=== PATIENT | male | born 1965 | race Caucasian/White ===

== ENCOUNTER 2018-10-02 11:22 | Inpatient (IN) | payer OTHER ==
[~2018-10-02] VITALS: Ht 188 cm; Wt 109.8 kg
[2018-10-02 11:35] VITALS: BP 150/115
--- NOTE | 2018-10-02 11:36 | NUR ---
PATIENT WHEELCHAIR ASSISTED TO BED 4.
--- NOTE | 2018-10-02 11:37 | NUR ---
WHEEL CHAIR ASSISTED TO BED 4
--- NOTE | 2018-10-02 11:40 | NUR ---
53M BIB DAUGHTER C/O 06/14 RT FOOT RADIATING TO HIS RT LEG/KNEE X 1 WK; PRESCRIBE WITH AMOXICILLIN BY PMD LAST SUNDAY WITH NO RELIEF FOR THE "ULCER ON BOTTOM OF FOOT" THAT HAS BEEN GOING ON SINCE "COUPLE OF MONTHS". ULCER APPROX 1CM IN DIAMETER. PT DENIES ANY RECENT FEVERS OR RECENT INJURY TO RIGHT FOOT OR RIGHT KNEE. SWELLING NOTED TO RIGHT KNEE AND RIGHT FOOT. PT IS AOX4 TO PERSON, PLACE, TIME, AND SITUATION. RR ARE EVEN AND UNLABORED. NAD. AWAITING ER MD GALEAS. WILL CONTINUE TO MONITOR.
[2018-10-02] MEDS ORDERED: CLINDAMYCIN 900 MG in DEXTROSE 5% 100 ML IV ONE (12:45)
[2018-10-02] MEDS ORDERED: fentaNYL 0.05 MG/ML VIAL IVP ONE (12:45)
[2018-10-02] MEDS ORDERED: NACL 0.9% 1,000 ML IV ONE (12:45)
[2018-10-02] MEDS ORDERED: methylPREDNISolone SS 125 MG/2 ML VIAL IVP ONE (12:45)
[2018-10-02] MEDS ORDERED: CLINDAMYCIN 900 MG/6 ML VIAL IV ONE (13:09)
[2018-10-02 13:22] LABS: BASOPHILS # (AUTO) 0.1 K/uL (0.00-0.22); BASOPHILS % (AUTO) 0.6 % (0.0-2.0); HEMATOCRIT 44.5 % (36-52); LYMPHOCYTES # (AUTO) 1.7 K/uL (2.0-11.5); LYMPHOCYTES % (AUTO) 13.1 % (20.5-51.1); MEAN CORPUSCULAR HEMOGLOBIN 30 pg (27-31); MEAN CORPUSCULAR HGB CONC 34 g/dL (33-37); MEAN CORPUSCULAR VOLUME 87.5 fL (80-94); MONOCYTES # (AUTO) 1.2 K/uL (0.8-1.0); MONOCYTES % (AUTO) 9.3 % (1.7-9.3); NEUTROPHILS # (AUTO) 9.8 K/uL (1.8-7.7); PLATELET COUNT (AUTO) 316 K/uL (140-450); RED BLOOD CELL COUNT(AUTO) 5.08 MIL/uL (4.20-6.10); RED CELL DISTRIBUTION WIDTH 13.1 % (11.6-13.7); WHITE BLOOD COUNT (AUTO) 12.7 K/uL (4.8-10.8)
[2018-10-02 14:02] LABS: ANION GAP 13.9 (8-16); CARBON DIOXIDE 32.4 mmol/L (21-32); POTASSIUM 3.3 mmol/L (3.5-5.1)
[2018-10-02 14:03] LABS: ALBUMIN 4.1 g/dL (3.4-5.0); CREATININE 1.2 mg/dL (0.7-1.3); TOTAL BILIRUBIN 0.6 mg/dL (0.0-1.0)
[2018-10-02 14:17] LABS: URIC ACID 6.9 mg/dL (2.6-7.2)
--- NOTE | 2018-10-02 14:42 | NUR ---
PATIENT STATES TO FEELING BETTER. WAITING FOR BLOOD RESULTS TO COME BACK. PATIENTS DAUGHTER IS BACK AT BESIDE. PATIENT BED IS IN THE LOWERED LOCK POSITION.
[2018-10-02] MEDS ORDERED: NACL 0.9% 3,000 ML IV ONE (14:55)
[2018-10-02] MEDS ORDERED: ATOR10TA51 PO (15:29)
[2018-10-02] MEDS ORDERED: QUET400T PO (15:29)
[2018-10-02] MEDS ORDERED: METO25TE2 PO (15:29)
[2018-10-02] MEDS ORDERED: HYDR-5092 PO (15:29)
[2018-10-02] MEDS ORDERED: ALPR2TAB1 PO (15:29)
--- NOTE | 2018-10-02 15:39 | NUR ---
PATIENT UNSURE OF 6TH MEDICATION DOSE AND FREQUENCY; ASKED TO FOLLOW UP WITH CORRECT INFORMATION; WILL FOLLOW UP
[2018-10-02] MEDS ORDERED: ACETAMINOPHEN 325 MG TAB PO PRN (16:15)
[2018-10-02] MEDS ORDERED: ONDANSETRON 4 MG/2 ML VIAL IVP PRN (16:15)
[2018-10-02] MEDS ORDERED: VANCOMYCIN PER PHARMACY MC PRN ×2 (16:20)
[2018-10-02] MEDS ORDERED: CHLO25TA33 PO (16:43)
--- NOTE | 2018-10-02 17:20 | NUR ---
Patient will be admitted to [facility]. Admited to Med Surg. Will go to room 112B. Belongings list completed. Bedside report to Gabrielle MARCOS.
--- NOTE | 2018-10-02 17:30 | NUR ---
RECEIVED REPORT FROM ER NURSE. PT IN STABLE CONDITION. IV INTACT AND PATENT. RESPIRATIONS EVEN AND UNLABORED. SAFETY MEASURE IN PLACE. WILL CONTINUE TO MONITOR.
[2018-10-02] MEDS: NACL 0.9% 1,000 ML IV SCH (17:59)
--- NOTE | 2018-10-02 18:00 | NUR ---
GAVE DUE MEDICATIONS, PT TOLERATED WELL. WILL CONTINUE TO MONITOR.
--- NOTE | 2018-10-02 19:15 | NUR ---
RECEIVED BEDSIDE REPORT FROM PRITI CLEMENT, PATIENT IN BED ON RA, C/O PAIN IN BACK AND RIGHT FOOT, IV IN LEFT AC 20G INFUSING NS AT 100 MO/HR, DRESSING IS INTACT. NOTED RIGHT FOOT ULCER SAÚL, DRY, LOOKS HEALED. EXPLAINED PLAN OF CARE UPDATED BOARD, CALL LIGHT WITHIN REACH, WILL CONTINUE TO MONITOR.
--- NOTE | 2018-10-02 19:15 | NUR ---
GAVE REPORT TO NIGHT NURSE FOR CONTINUITY OF CARE. PT IN STABLE CONDITION.
[2018-10-02] MEDS ORDERED: POTASSIUM CHLORIDE 10 MEQ TABER PO SCH (20:00)
[2018-10-02 20:29] VITALS: BP 122/78
[2018-10-02] MEDS: ALPRAZolam 0.5 MG TAB PO SCH (20:31)
[2018-10-02] MEDS: NICOTINE TRANSD SYS 14 MG/24 HR PATCH TD SCH (20:32)
[2018-10-02] MEDS ORDERED: VANCOMYCIN 1GM/DEXT 5% PREMIX 200 ML IV SCH (21:00)
[2018-10-02] MEDS ORDERED: QUEtiapine FUMARATE 25 MG TAB PO SCH ×2 (21:00)
[2018-10-02] MEDS ORDERED: VANCOMYCIN 500 MG VIAL ONE ×2 (21:21→21:29)
[2018-10-02] MEDS: VANCOMYCIN 1,250 MG in DEXTROSE 5% 250 ML IV SCH (21:27)
--- NOTE | 2018-10-02 21:30 | NUR ---
SCD PLACED PATIENT REQUESTED TO REMOVE AND PUT ON LATER.
[2018-10-02] MEDS ORDERED: VANCOMYCIN 1,250 MG in NACL 0.9% 250 ML IV SCH (22:00)
[2018-10-02] MEDS: MORPHINE SULFATE 4 MG/ML SYR IVP PRN (22:39)
--- NOTE | 2018-10-02 23:00 | NUR ---
CALLED PHARMACY TO NOTIFY SEROQUEL IS OUT OF STOCK AND TO CLARIFY IF XANAX 2 MG SAFE TO GIVE. SEROQUEL NOT ADMINISTERED DUE TO INSUFFICIENCY. XANAX ADMINISTERED.
--- NOTE | 2018-10-02 23:09 | NUR ---
PATIENT SLEEPING IN BED NO SIGNS OF DISTRESS.
--- NOTE | 2018-10-02 23:39 | NUR ---
PATIENT C/O PAIN 10/10 MEDICATED ACCORDING TO MD ORDER.
[2018-10-03] VITALS: BP 123/89
--- NOTE | 2018-10-03 | NUR ---
V/S TAKEN ALL WITHIN PATIENTS BASELINE, DENIES PAIN WILL CONTINUE TO MONITOR.
[2018-10-03] MEDS: NACL 0.9% 1,000 ML IV SCH ×3 (01:38→22:25)
--- NOTE | 2018-10-03 02:18 | NUR ---
PATIENT SLEEPING IN BED, NO SIGNS OF DISTRESS.
--- NOTE | 2018-10-03 03:00 | NUR ---
PATIENT REFUSED TO WEAR SCD.
--- NOTE | 2018-10-03 04:02 | NUR ---
PATIENT C/O NAUSEOUS MEDICATED WITH ZOFRAN.
[2018-10-03] MEDS: HYDROcodone/APAP 5/325 MG 1 TAB TAB PO PRN (05:48)
--- NOTE | 2018-10-03 07:15 | NUR ---
ENDORSED PATIENT TO DAY SHIFT NURSE PATIENT STABLE.
--- NOTE | 2018-10-03 07:16 | NUR ---
RECEIVED REPORT FROM FIBERGLASS ROVING WINDER NURSE FOR CONTINUITY OF CARE. PT IN STABLE CONDITION. RESPIRATIONS EVEN AND UNLABORED. IV INTACT, PATENT. SAFETY MEASURES IN PLACE. CALL LIGHT AT BEDSIDE. BED IN LOW POSITION. WILL CONTINUE TO MONITOR.
[2018-10-03 07:42] LABS: BASOPHILS # (AUTO) 0.1 K/uL (0.00-0.22); EOSINOPHILS % (AUTO) 0.1 % (0.0-4.0); HEMATOCRIT 39.7 % (36-52); HEMOGLOBIN 13.2 g/dL (12.0-18.0); LYMPHOCYTES # (AUTO) 1.6 K/uL (2.0-11.5); LYMPHOCYTES % (AUTO) 15.6 % (20.5-51.1); MEAN CORPUSCULAR HEMOGLOBIN 30 pg (27-31); MEAN CORPUSCULAR HGB CONC 33 g/dL (33-37); MEAN CORPUSCULAR VOLUME 88.7 fL (80-94); MONOCYTES # (AUTO) 1.2 K/uL (0.8-1.0); MONOCYTES % (AUTO) 11.7 % (1.7-9.3); NEUTROPHILS # (AUTO) 7.5 K/uL (1.8-7.7); NEUTROPHILS % (AUTO) 71.6 % (42.2-75.2); PLATELET COUNT (AUTO) 282 K/uL (140-450); RED BLOOD CELL COUNT(AUTO) 4.47 MIL/uL (4.20-6.10); RED CELL DISTRIBUTION WIDTH 13.5 % (11.6-13.7); WHITE BLOOD COUNT (AUTO) 10.5 K/uL (4.8-10.8)
[2018-10-03 07:46] LABS: CARBON DIOXIDE 30.2 mmol/L (21-32); POTASSIUM 3.2 mmol/L (3.5-5.1)
[2018-10-03 08:00] VITALS: BP 133/82
--- NOTE | 2018-10-03 08:35 | NUR ---
PATIENT HAS BEEN SCREENED AND CATEGORIZED HIGH NUTRITION RISK. PATIENT WILL BE SEEN WITHIN 1-2 DAYS OF ADMISSION. 10/03/18-10/04/[address]
--- NOTE | 2018-10-03 09:00 | NUR ---
GAVE DUE ORDERED MEDICATIONS, PT TOLERATED WELL. WILL CONTINUE TO MONITOR.
[2018-10-03] MEDS ORDERED: VANCOMYCIN 500 MG VIAL ONE (09:46)
[2018-10-03] MEDS: METOPROLOL SUCCINATE 50 MG TABER PO SCH (09:57)
[2018-10-03] MEDS: ALPRAZolam 0.5 MG TAB PO SCH ×2 (09:57→21:22)
[2018-10-03] MEDS: ATORVASTATIN 20 MG TAB PO SCH (09:57)
--- NOTE | 2018-10-03 10:05 | NUR ---
CRITICAL RESULT FROM LAB LACTIC ACID 4.3, INFORMED DR. BOLANOS.
[2018-10-03] MEDS: VANCOMYCIN 1,250 MG in DEXTROSE 5% 250 ML IV SCH ×2 (10:16→21:26)
[2018-10-03] MEDS: MORPHINE SULFATE 4 MG/ML SYR IVP PRN ×3 (11:37→21:24)
--- NOTE | 2018-10-03 12:26 | NUR ---
CRITICAL RESULT FROM LAB LACTIC ACID 3.4.
--- NOTE | 2018-10-03 13:50 | NUR ---
CM NOTE PER NAWAF OF DR. LETI GODOY'S (PCP) CLINIC PH# [phone], PATIENT IS SCHEDULED FOR OUTPATIENT FOLLOW UP ON OCTOBER 09, 2018 1:00 PM AT THE CLINIC IN [address] [place] [address] [facility] [id number] I GAVE PATIENT A COPY OF HIS OUTPATIENT FOLLOW UP SCHEDULE
--- NOTE | 2018-10-03 14:15 | NUR ---
10/03/18 RD INITIAL ASSESSMENT COMPLETED PLEASE REFER TO NUTRITION ASSESSMENT UNDER CARE ACTIVITY FOR ESTIMATED NUTRITIONAL NEEDS. 1. CONTINUE REGULAR DIET TOLERATED 2. DIETITIAN RECOMMENDS 2 GM SODIUM DIET 3. DIETITIAN RECOMMENDS VITAMIN C 1 X/DAY 4. DIETITIAN RECOMMENDS ZINC 1 X/DAY 5. DIETITIAN RECOMMENDS MVI 1 X/DAY 6. DIETITIAN PROVIDED HTN NUTRITIONAL EDUCATION 7. RD TO FOLLOW-UP 2-3 DAYS, HIGH RISK SHARON VAZQUEZ RD
--- NOTE | 2018-10-03 14:30 | NUR ---
PT LYING IN BED WATCHING TV IN STABLE CONDITION. WILL CONTINUE TO MONITOR.
[2018-10-03 16:00] VITALS: BP 133/82
--- NOTE | 2018-10-03 16:45 | NUR ---
VITALS TAKEN. PT IN STABLE CONDITION. WILL CONTINUE TO MONITOR.
--- NOTE | 2018-10-03 18:00 | NUR ---
GAVE ORDERED DUE MEDICATIONS, PT TOLERATED WELL. WILL CONTINUE TO MONITOR.
--- NOTE | 2018-10-03 19:20 | NUR ---
GAVE REPORT TO NIGHT NURSE FOR CONTINUITY OF CARE. PT IN STABLE CONDITION.
--- NOTE | 2018-10-03 19:22 | NUR ---
RECEIVED PT FROM URBANO RN PT IS AAOX4 AMBULATES BUT ON BED REST FOR RT FOOT ULCER IV ON LEFT AC INFUSING WELL PINITIAL ASSESSMENT DONE
[2018-10-03 20:00] VITALS: BP 139/80
--- NOTE | 2018-10-03 21:00 | NUR ---
DR POPE IS HERE AND SEE THE PT
[2018-10-03] MEDS: NICOTINE TRANSD SYS 14 MG/24 HR PATCH TD SCH (21:19)
[2018-10-03] MEDS: QUEtiapine FUMARATE 100 MG TAB PO SCH (21:21)
--- NOTE | 2018-10-03 22:00 | NUR ---
AFTER PAIN MEDIC GIVEN PT SLEEPS QUIET NOT DISTRESS NOTED
--- NOTE | 2018-10-04 02:00 | NUR ---
PT SLEEPING WELL NOT DISTRESS NOTED IV ON LEFT AC INFUSING WELL
[2018-10-04 04:00] VITALS: BP 109/74
--- NOTE | 2018-10-04 04:00 | NUR ---
SPONGE BATH GIVEN LINEN CHANGED IV ON LEFT AC INFUSING WELL PT VOIDING WELL
[2018-10-04] MEDS: NACL 0.9% 1,000 ML IV SCH ×2 (04:29→04:45)
[2018-10-04] MEDS: MORPHINE SULFATE 4 MG/ML SYR IVP PRN ×4 (04:44→20:36)
[2018-10-04 06:40] LABS: BASOPHILS # (AUTO) 0.1 K/uL (0.00-0.22); EOSINOPHILS # (AUTO) 0.1 K/uL (0-0.4); EOSINOPHILS % (AUTO) 1.5 % (0.0-4.0); HEMATOCRIT 39.1 % (36-52); LYMPHOCYTES # (AUTO) 1.2 K/uL (2.0-11.5); LYMPHOCYTES % (AUTO) 18.5 % (20.5-51.1); MEAN CORPUSCULAR HEMOGLOBIN 29 pg (27-31); MEAN CORPUSCULAR HGB CONC 33 g/dL (33-37); MEAN CORPUSCULAR VOLUME 88.1 fL (80-94); MONOCYTES # (AUTO) 0.7 K/uL (0.8-1.0); MONOCYTES % (AUTO) 10.6 % (1.7-9.3); NEUTROPHILS # (AUTO) 4.3 K/uL (1.8-7.7); NEUTROPHILS % (AUTO) 67.4 % (42.2-75.2); PLATELET COUNT (AUTO) 232 K/uL (140-450); RED BLOOD CELL COUNT(AUTO) 4.44 MIL/uL (4.20-6.10); RED CELL DISTRIBUTION WIDTH 13.5 % (11.6-13.7); WHITE BLOOD COUNT (AUTO) 6.4 K/uL (4.8-10.8)
--- NOTE | 2018-10-04 06:45 | NUR ---
PT RESTING ON BED AFTER PAIN MEDIC GIVEN NOT DISTRESS NOTED
[2018-10-04 06:46] LABS: ANION GAP 9.1 (8-16); CARBON DIOXIDE 31.3 mmol/L (21-32); POTASSIUM 3.4 mmol/L (3.5-5.1)
--- NOTE | 2018-10-04 07:28 | NUR ---
RECEIVED BEDSIDE REPORT FROM PRITI ROSE,PRITI. PATIENT IN BED ON RA, C/O PAIN IN BACK AND RIGHT FOOT, IV IN LEFT AC 20G INFUSING NS AT 100 MO/HR, DRESSING IS INTACT. NOTED RIGHT FOOT WOUND SAÚL, DRY, LOOKS HEALED. EXPLAINED PLAN OF CARE UPDATED BOARD, CALL LIGHT WITHIN REACH, WILL CONTINUE TO MONITOR.
[2018-10-04 08:00] VITALS: BP 167/94
[2018-10-04] MEDS: ALPRAZolam 0.5 MG TAB PO SCH ×2 (09:08→22:00)
[2018-10-04] MEDS: ATORVASTATIN 20 MG TAB PO SCH (09:09)
[2018-10-04] MEDS: MULTIVITAMIN 1 TAB PO SCH (09:09)
[2018-10-04] MEDS: ASCORBIC ACID 500 MG TAB PO SCH (09:10)
[2018-10-04] MEDS: METOPROLOL SUCCINATE 50 MG TABER PO SCH (09:10)
[2018-10-04] MEDS: ZINC SULF 220 MG CAP PO SCH (09:10)
--- NOTE | 2018-10-04 09:48 | NUR ---
PT RESTING ON BED AFTER PAIN MEDIC GIVEN NOT DISTRESS NOTED. WILL CONTINUE TO MONITOR
[2018-10-04] MEDS: VANCOMYCIN HCL 1,500 MG in DEXTROSE 5% 500 ML IV SCH (13:18)
--- NOTE | 2018-10-04 13:20 | NUR ---
PT RESTING ON BED.NO SIGNS OF PAIN. WILL CONTINUE TO ROUND FREQUENTLY.
--- NOTE | 2018-10-04 13:55 | NUR ---
SPOKE WITH MARTITA FROM RADIOLOGY. MARTITA WANTED TO CLARIFY ORDER FOR PT ASPIRATION. ULTRASOUND ORDER PUT IN PER TORB.
[2018-10-04] MEDS ORDERED: ETHYL CHLORIDE 105 ML SPR TP SCH (14:30)
[2018-10-04] MEDS: NEOMYCIN/POLYMYXIN/BACITRACIN 0.9 GM/1 PKT TP SCH (14:40)
[2018-10-04 16:00] VITALS: BP 139/82
--- NOTE | 2018-10-04 16:15 | NUR ---
PT ARTHROCENTISIS OF THE RIGHT KNEE DONE. PT TOLERATED WELL. NO SIGNS OF DISTRESS. WILL CONTINUE TO MONITOR PUNCTURE SITE FOR SIGNS OF BLEEDING
[2018-10-04 17:22] LABS: GLUCOSE,BODY FLUID 114 mg/dL
--- NOTE | 2018-10-04 19:33 | NUR ---
ENDORSED PT TO DEBT COLLECTION SPECIALIST NURSE FOR CONTINUITY OF CARE. PT IN STABLE CONDITION AT THIS TIME.
--- NOTE | 2018-10-04 19:34 | NUR ---
RECEIVED REPORT DAYSHIFT NURSE AT BEDSIDE FOR CONTINUITY OF CARE. PT AAOX4. IV NOTED LFA 22G NS 100ML/HR. NO SOB NO S/S OF DISTRESS ON RA. BED LOWERED CALL LIGHT WITHIN REACH WILL CONTINUE TO MONITOR.
[2018-10-04] MEDS: QUEtiapine FUMARATE 100 MG TAB PO SCH (20:36)
[2018-10-04] MEDS: NICOTINE TRANSD SYS 14 MG/24 HR PATCH TD SCH (20:46)
[2018-10-05] VITALS: BP 129/90
[2018-10-05] MEDS: VANCOMYCIN HCL 1,500 MG in DEXTROSE 5% 500 ML IV SCH ×2 (00:18→13:19)
[2018-10-05 01:21] LABS: APPEARANCE,SPUN,BODY FLUID CLEAR (CLEAR); APPEARANCE,UNSPUN,BODY FLUID HAZY (CLEAR); COLOR,BODY FLUID LT YELLOW (LT YELLOW); RBC, BODY FLUID 52 /cu. mm.; SPECIMENTYPE,BODY FLUID SYNOVIAL; WBC, BODY FLUID 7056 /cu. mm.
[2018-10-05 01:22] LABS: POLYNUCLEAR, BODY FLUID 95 %
[2018-10-05 01:32] LABS: TOTAL VOLUME,BODY FLUID 30 mL
--- NOTE | 2018-10-05 02:00 | NUR ---
PT IV SITE INFILTRATED WHILE INFUSING VANCO. CHARGE NURSE AWARE AND AT BEDSIDE. RECOMMENDATION ELEVATED WITH PILLOW AND WARM CLOTHES TO DECREASE SWELLING. ALSO D/C IV AND STARTED NEW IV.
[2018-10-05] MEDS: MORPHINE SULFATE 4 MG/ML SYR IVP PRN ×5 (02:27→19:44)
[2018-10-05] MEDS: NACL 0.9% 1,000 ML IV SCH ×2 (04:25→09:44)
[2018-10-05 07:15] LABS: CARBON DIOXIDE 26.6 mmol/L (21-32); CREATININE 0.8 mg/dL (0.7-1.3); POTASSIUM 3.6 mmol/L (3.5-5.1)
--- NOTE | 2018-10-05 07:39 | NUR ---
ENDORSED REPORT TO DAYSHIFT NURSE AT BEDSIDE FOR CONTINUITY OF CARE.
--- NOTE | 2018-10-05 07:40 | NUR ---
RECEIVED BEDSIDE REPORT FROM KITCHEN CLERK NURSE. PATIENT IS AWAKE, ALERT AND ORIENTEDX4. NO SIGNS OF DISTRESS ON RA. FALL RISK PROTOCOL INITIATED. DX FOOT CELLULITIS, WOUND ON R FOOT. URINAL AT BEDSIDE. PATIENT IS CONTINENT. R KNEE HAD ASPIRATION, BANDAID IS INTACT. IV ON R FA 22G INFUSING NS AT 100. CLEAN, DRY AND INTACT. BED IN LOW POSITION. CALL LIGHT WITHIN REACH. WILL CONTINUE TO MONITOR THE PATIENT.
[2018-10-05 08:00] VITALS: BP 149/92
[2018-10-05] MEDS: ALPRAZolam 0.5 MG TAB PO SCH ×2 (09:40→20:07)
[2018-10-05] MEDS: MULTIVITAMIN 1 TAB PO SCH (09:40)
[2018-10-05] MEDS: METOPROLOL SUCCINATE 50 MG TABER PO SCH (09:41)
[2018-10-05] MEDS: ZINC SULF 220 MG CAP PO SCH (09:41)
[2018-10-05] MEDS: ASCORBIC ACID 500 MG TAB PO SCH (09:41)
[2018-10-05] MEDS: ATORVASTATIN 20 MG TAB PO SCH (09:41)
--- NOTE | 2018-10-05 09:50 | NUR ---
ADMINISTERED MEDS. PATIENT TOLERATED WELL. PATIENT REFUSES TO WEAR YELLOW FALL RISK BAND AND YELLOW GOWN AND SOCKS. EDUCATED ON THE IMPORTANCE. STILL REFUSED. NO COMPLAINTS AT THIS TIME. TALKING TO PATIENT IN BED A. WILL CONTINUE TO MONITOR THE PATIENT.
--- NOTE | 2018-10-05 11:00 | NUR ---
PATIENT COMMUNICATING W PATIENT IN A BED. NO SIGNS OF DISTRESS. WILL CONTINUE TO MONITOR THE PATIENT
[2018-10-05] MEDS: NEOMYCIN/POLYMYXIN/BACITRACIN 0.9 GM/1 PKT TP SCH (13:24)
--- NOTE | 2018-10-05 13:24 | NUR ---
ADMINISTERED MEDS. PATIENT TOLERATED WELL. WILL CONTINUE TO MONITOR THE PATIENT.
--- NOTE | 2018-10-05 15:36 | NUR ---
ADMINISTERED PRN PAIN MEDS. PATIENT TOLERATED WELL. IV CAME OFF, NEW IV PLACED ON R FA 22G INFUSING NS AT 100.CLEAN, DRY AND INTACT
[2018-10-05 16:00] VITALS: BP 152/89
--- NOTE | 2018-10-05 17:00 | NUR ---
PATIENT IN NO SIGNS OF DISTRESS. WILL CONTINUE TO MONITOR THE PATIENT
--- NOTE | 2018-10-05 19:00 | NUR ---
GAVE BEDSIDE REPORT TO MACHINE SPECIALIST NURSE. PATIENT ENDORSED IN STABLE CONDITION
--- NOTE | 2018-10-05 19:01 | NUR ---
RECEIVED REPORT DAYSHIFT NURSE AT BEDSIDE FOR CONTINUITY OF CARE. PT AAOX4. IV NOTED RFA 22G NS 100ML/HR. NO SOB NO S/S OF DISTRESS ON RA. BED LOWERED CALL LIGHT WITHIN REACH WILL CONTINUE TO MONITOR.
[2018-10-05] MEDS: QUEtiapine FUMARATE 100 MG TAB PO SCH (20:07)
[2018-10-05] MEDS: NICOTINE TRANSD SYS 14 MG/24 HR PATCH TD SCH (20:08)
--- NOTE | 2018-10-05 20:10 | NUR ---
PT TOLERATED MEDS WILL CONTINUE TO MONITOR.
--- NOTE | 2018-10-05 21:47 | NUR ---
ADMIN PAIN MED OVER 1HR AGO. PT IS CURRENTLY SLEEPING. NO SOB NO S/S OF DISTRESS ON RA.WILL CONTINUE TO MONITOR.
[2018-10-06] VITALS: BP 156/90
--- NOTE | 2018-10-06 00:11 | NUR ---
VANCO TROUGH 15.5. BELOW HOLDING PARAMETERS OF 20.0. WILL INFUSE VANCOMYCIN IVPB FO 0000 DOSE.
[2018-10-06] MEDS: VANCOMYCIN HCL 1,500 MG in DEXTROSE 5% 500 ML IV SCH ×3 (00:16→23:31)
[2018-10-06] MEDS: NACL 0.9% 1,000 ML IV SCH ×3 (01:21→20:25)
[2018-10-06] MEDS: MORPHINE SULFATE 4 MG/ML SYR IVP PRN ×4 (02:54→17:06)
--- NOTE | 2018-10-06 05:43 | NUR ---
PT SLEEPING NO SOB NO S/S OF DISTRESS ON RA. WILL CONTINUE TO MONITOR.
--- NOTE | 2018-10-06 07:20 | NUR ---
RECEIVED BEDSIDE REPORT FROM DRUG AND ALCOHOL COUNSELLOR NURSE. PATIENT AAOX4. NO SIGNS OF DISTRESS, ON ROOM AIR. WOUND ON R FOOT, DRESSING CLEAN AND INTACT. IV ON L FOREARM 22 G INFUSING NS AT 100. BED IN LOWEST POSITION, CALL LIGHT WITHIN REACH. FALL RISK PROTOCOL IN PLACE. URINAL AT BEDSIDE. PATIENT HAS WEAKNESS DUE TO KNEE PAIN. WILL CONTINUE TO MONITOR.
[2018-10-06 08:00] VITALS: BP 149/85
[2018-10-06] MEDS: ALPRAZolam 0.5 MG TAB PO SCH ×2 (08:29→21:26)
[2018-10-06] MEDS: MULTIVITAMIN 1 TAB PO SCH (08:29)
[2018-10-06] MEDS: ZINC SULF 220 MG CAP PO SCH (08:30)
[2018-10-06] MEDS: ATORVASTATIN 20 MG TAB PO SCH (08:30)
[2018-10-06] MEDS: ASCORBIC ACID 500 MG TAB PO SCH (08:30)
[2018-10-06] MEDS: METOPROLOL SUCCINATE 50 MG TABER PO SCH (08:30)
--- NOTE | 2018-10-06 08:36 | NUR ---
administered meds. patient tolerated well. will continue to monitor the patient
[2018-10-06] MEDS: predniSONE 20 MG TAB PO SCH (09:54)
[2018-10-06] MEDS: COLCHICINE 0.6 MG TAB PO SCH ×2 (09:54→20:20)
--- NOTE | 2018-10-06 10:00 | NUR ---
PATIENT IN NO DISTRESS. WILL CONTINUE TO MONITOR THE PATIENT
[2018-10-06] MEDS: IBUPROFEN 800 MG TAB PO SCH ×2 (12:20→17:06)
[2018-10-06] MEDS: NEOMYCIN/POLYMYXIN/BACITRACIN 0.9 GM/1 PKT TP SCH (12:20)
--- NOTE | 2018-10-06 12:31 | NUR ---
ADMINISTERED MEDS. PATIENT TOLERATED WELL. WILL CONTINUE TO MONITOR THE PATIENT.
--- NOTE | 2018-10-06 14:29 | NUR ---
10/06/18 RD FOLLOW UP COMPLETED PLEASE REFER TO NUTRITION PROGRESS NOTE UNDER CARE ACTIVITY FOR ESTIMATED NUTRITION NEEDS. RD RECOMMENDATIONS: 1. RECOMMEND CONTINUE CARDIAC DIET TOLERATED 2. RECOMMEND CONTINUE VITAMIN C 1 X/DAY, ZINC 1 X/DAY, MVI 1 X/DAY 3. RD TO FOLLOW-UP 3-5 DAYS, MODERATE RISK CARLTON PERLA MBA, RD
--- NOTE | 2018-10-06 14:39 | NUR ---
PATIENT SITTING IN BED. NO SIGNS OF DISTRESS. WILL CONTINUE TO MONITOR.
[2018-10-06 16:00] VITALS: BP 159/81
--- NOTE | 2018-10-06 16:00 | NUR ---
PATIENT RETURNED TO BED AFTER USING BEDSIDE URINAL. PATIENT IN STABLE CONDITION. WILL CONTINUE TO MONITOR.
--- NOTE | 2018-10-06 17:13 | NUR ---
ADMINISTERED MEDS. PATIENT TOLERATED WELL. WILL CONTINUE TO MONITOR THE PATIENT.
--- NOTE | 2018-10-06 19:15 | NUR ---
GAVE BEDSIDE REPORT TO DIRECTOR SOCIAL SERVICE NURSE. ENDORSED PATIENT IN STABLE CONDITION.
--- NOTE | 2018-10-06 19:16 | NUR ---
RECEIVED PATIENT AWAKE RESTING ON BED. PATIENT AA0X4, NO S/S OF DISTRESS NOTED. EXPLAIN PLAN OF CARE AND VERBALIZED UNDERSTANDING. PATIENT IS PLEASANT AND COOPERATIVE. FALL PRECAUTION APPLIED. CALL LIGHT WITHIN REACH. WILL CONTINUE TO MONITOR.
--- NOTE | 2018-10-06 20:00 | NUR ---
V/S TAKEN AND RECORDED. ALL NEEDS ATTENDED.
[2018-10-06] MEDS: QUEtiapine FUMARATE 100 MG TAB PO SCH (20:20)
--- NOTE | 2018-10-06 21:00 | NUR ---
SCHEDULE MEDICATION GIVEN. TOLERATED WELL. DENIES PAIN. WILL CONTINUE TO MONITOR.
[2018-10-06] MEDS ORDERED: ALPRAZolam 0.25 MG TAB ONE ×2 (21:15→21:22)
[2018-10-06] MEDS: NICOTINE TRANSD SYS 14 MG/24 HR PATCH TD SCH (21:43)
[2018-10-07] VITALS: BP 119/68
--- NOTE | 2018-10-07 | NUR ---
SCHEDULE MEDICATION GIVEN. TOLERATED WELL. V/S TAKEN AND RECORDED. NO S/S OF DISTRESS NOTED. DENIES PAIN AT THIS TIME. WILL CONTINUE TO MONITOR.
--- NOTE | 2018-10-07 02:00 | NUR ---
CHECKED PATIENT SLEEPING BUT EASILY AROUSABLE. DENIES PAIN AT THIS TIME. NO /S OF DISTRESS. CALL LIGHT WITHIN REACH. ALL NEEDS ATTENDED. WILL CONTINUE TO MONITOR.
[2018-10-07] MEDS: NACL 0.9% 1,000 ML IV SCH (04:00)
--- NOTE | 2018-10-07 04:00 | NUR ---
AM CARE DONE. LINEN CHANGED. ALL NEEDS ATTENDED.
[2018-10-07] MEDS: MORPHINE SULFATE 4 MG/ML SYR IVP PRN (04:48)
--- NOTE | 2018-10-07 07:15 | NUR ---
ENDORSEMENT GIVEN TO AM SHIFT NURSE AT BEDSIDE. PATIENT IN STABLE CONDITION.
--- NOTE | 2018-10-07 07:30 | NUR ---
RECEIVED PT REPORT FROM SALES CONSULTING DIRECTOR RN AT BEDSIDE. PT IS AAOX4. NO S/S OF DISTRESS ON ROOM AIR. LEFT KNEE SWELLING NOTED, PT STATED HE TOLD THE DOCTOR LAST EVENING ALREADY. BOTH FEET HAS NO SWELLING, BUT RIGHT FOOT HAS WOUND AT THE BOTTOM, SAÚL AT THIS TIME, NO DRAINAGE NOTED. PLAN OF CARE DISCUSSED, PT VERBALIZED UNDERSTANDING. FALL PRECAUTION IN PLACE. CALL LIGHT WITHIN REACH. WILL CONTINUE TO MONITOR.
[2018-10-07 08:00] VITALS: BP 146/97
[2018-10-07] MEDS ORDERED: COL.6 PO (09:03)
[2018-10-07] MEDS ORDERED: IBUP-2217 PO (09:03)
[2018-10-07] MEDS: COLCHICINE 0.6 MG TAB PO SCH (09:42)
[2018-10-07] MEDS: IBUPROFEN 800 MG TAB PO SCH ×2 (09:42→12:40)
[2018-10-07] MEDS: ZINC SULF 220 MG CAP PO SCH (09:42)
[2018-10-07] MEDS: HYDROcodone/APAP 5/325 MG 1 TAB TAB PO PRN ×2 (09:43→14:05)
[2018-10-07] MEDS: MULTIVITAMIN 1 TAB PO SCH (09:43)
[2018-10-07] MEDS: ATORVASTATIN 20 MG TAB PO SCH (09:43)
[2018-10-07] MEDS: ASCORBIC ACID 500 MG TAB PO SCH (09:43)
[2018-10-07] MEDS: METOPROLOL SUCCINATE 50 MG TABER PO SCH (09:44)
[2018-10-07] MEDS: predniSONE 20 MG TAB PO SCH (09:44)
[2018-10-07] MEDS: ALPRAZolam 0.5 MG TAB PO SCH (10:05)
--- NOTE | 2018-10-07 10:31 | NUR ---
PT REFUSED POST-OP SHOE. MADE PT AWARE OF WHAT POST-OP SHOE IS FOR. PT STATED HE IS FINE WEARING HIS FLIP-FLOP AND HE DOESN'T WANT HIS BILL TO BE HIGH.
[2018-10-07] MEDS: NEOMYCIN/POLYMYXIN/BACITRACIN 0.9 GM/1 PKT TP SCH (11:37)
--- NOTE | 2018-10-07 12:02 | NUR ---
CALLED DR. LETI REYNOSO OFFICE, . I SET UP A FOLLOW UP APPOINTMENT ON Sunday10/10/[address] REYNOSO. I SPOKE WITH THE PATIENT AND HE SAID HE ALREADY HAD AN APPOINTMENT ON SUNDAY. I SPOKE WITH THE OFFICE AND WAS TOLD TO CANCEL SUNDAY'S APPOINTMENT AND FOR PATIENT TO KEEP THE APPOINTMENT ON SUNDAY SINCE HE WOULD BE ABLE TO SEE DR REYNOSO ON SUNDAY NOT THE PA. I TOLD THE PATIENT THAT SUNDAY APPOINTMENT IS CANCELED AND TO KEEP THE APPOINTMENT ON Sunday10/10/18 AT 2P.M. PHONE [phone]. APPOINTMENT AT [place] OFFICE, DATE, TIME AND ADDRESS AND PHONE NUMBER GIVEN TO PATIENT.
--- NOTE | 2018-10-07 12:40 | NUR ---
RIGHT FOOT WOUND PIC TAKEN. NEOSPORIN APPLIED, BAND AID APPLIED.
[2018-10-07] MEDS: VANCOMYCIN HCL 1,500 MG in DEXTROSE 5% 500 ML IV SCH (12:41)
--- NOTE | 2018-10-07 13:22 | NUR ---
ORDER FOR FU WITH PODIATRY, DR. HUY CAZARES. I TRIED TO CALL THE CLINIC, UNABLE TO LEAVE MESSAGE. THE PATIENT WAS GIVEN THE PHONE NUMBER AND ADDRESS FROM HIS RN, JAYSHREE. HE WAS INSTRUCTED TO CALL TO MAKE A FOLLOW UP APPOINTMENT. PHONE [phone]ESS [phone]
--- NOTE | 2018-10-07 14:40 | NUR ---
PT HAS MADE APPT WITH HIS PCP. PT IS ALSO AWARE TO MAKE APPT WITH OPTICAL ADVISOR. CONTACT INFO FOR DR SON PROVIDED.
--- NOTE | 2018-10-07 15:10 | NUR ---
PT DISCHARGED PER MD ORDER. DISCHARGE INSTRUCTIONS AND MEDICATION TEACHING PROVIDED. PT VERBALIZED UNDERSTANDING. PT SIGNED ALL DISCHARGE PAPER AND PACKED ALL HIS BELONGINGS. IV DC'D, TIP INTACT, PRESSURE APPLIED. WHEELED PT TO LOBBY. PT WAS PICKED UP BY HIS DAUGHTER.
== END 2018-10-07 15:20 | disposition home or self-care (01) | DRG 351 ==
LOC: MED 11:22 → MTU 16:15
PROVIDERS: ADMIT Hospitalist; ATTEND Internal Medicine
PROC: 0S9C3ZX Drainage of Right Knee Joint, Percutaneous Approach, Diagnostic (ICD-10-PCS; principal; 2018-10-04)
DX: M10.061 Idiopathic gout, right knee (principal); E87.2 Acidosis; R65.10 Systemic inflammatory response syndrome (SIRS) of non-infectious origin without acute organ dysfunction; L03.115 Cellulitis of right lower limb; L97.519 Non-pressure chronic ulcer of other part of right foot with unspecified severity; M25.461 Effusion, right knee; I10 Essential (primary) hypertension; F41.9 Anxiety disorder, unspecified; G89.29 Other chronic pain; E78.5 Hyperlipidemia, unspecified; M51.26 Other intervertebral disc displacement, lumbar region; E78.00 Pure hypercholesterolemia, unspecified; L84 Corns and callosities; F31.9 Bipolar disorder, unspecified; F17.210 Nicotine dependence, cigarettes, uncomplicated; M17.11 Unilateral primary osteoarthritis, right knee; Z88.8 Allergy status to other drugs, medicaments and biological substances; Z79.899 Other long term (current) drug therapy
CPT/HCPCS: 36415; 73562; 73630; 76881; 76942; 80048; 80053; 80202; 82945; 82948; 83605; 84157; 84550; 85025; 85651; 86140; 87040; 87070; 87081; 89051; 96361; 96365; 96375; 99285; J0696; J2270; J2405; J2930; J3010; J3370; J3490; J7030; J7060; J7512; Q0092

== ENCOUNTER 2019-07-20 13:52 | Emergency (ER) | payer OTHER ==
[~2019-07-20] VITALS: Ht 188 cm; Wt 97.7 kg
[~2019-07-20 13:52] MED LIST: ALPR2TAB1 PO; ATOR10TA51 PO; CHLO25TA33 PO; COL.6 PO; HYDR-5092 PO; IBUP-2217 PO; METO25TE2 PO; QUET400T PO
[2019-07-20 13:56] VITALS: BP 130/91
--- NOTE | 2019-07-20 13:56 | NUR ---
PT TAKEN TO BED 11.
--- NOTE | 2019-07-20 14:09 | NUR ---
PT BIB FAMILY WITH C/O ANXIETY S/P STOPPING NORCO AND XANAX. PT STATES "I TAKE 4 X10MG NORCO AND 4MG XANAX A DAY AND I STOPPED AND NOW I FELL ANXIOUS AND PARANOID AND I AM HEARING VOICES" DENIES SI/HI. OFF FROM HIS SEROQUEL AT THIS TIME, USED TO TAKE 400 MG SEROQUEL AT NIGHT DAILY. HX OF BIPOLAR D/O AND SCHIZOPHRENIA. STATES TO HAVE HEARING VOICES CURRENTLY. ADMITS OF SMOKING "POT'' TWO HOURS AGO. PT AAOX4, RESP NORMAL LABORED AND EVEN. PT FA,MARILYN AT THE BEDSIDE. PMHX- SCHIZOPHRENIA, NARCOTIC ABUSE, XANAX ABUSE, BIPOLAR D/O, GOUT, BP ALLERGY: HEPARIN
[2019-07-20 14:24] VITALS: BP 130/91
--- NOTE | 2019-07-20 14:27 | NUR ---
Patient discharged with v/s stable. Written and verbal after care instructions given and explained. Patient alert, oriented and verbalized understanding of instructions. Ambulatory with steady gait. All questions addressed prior to discharge. ID band removed. Patient advised to follow up with PMD. Rx of SEROQUEL 400 MG given. Patient educated on indication of medication including possible reaction and side effects. Opportunity to ask questions provided and answered.
== END 2019-07-20 14:27 | disposition home or self-care (01) ==
LOC: MED 13:52
DX: L84 Corns and callosities (principal); R44.0 Auditory hallucinations; F41.9 Anxiety disorder, unspecified; F17.210 Nicotine dependence, cigarettes, uncomplicated; I10 Essential (primary) hypertension; E11.9 Type 2 diabetes mellitus without complications; M10.9 Gout, unspecified; F20.9 Schizophrenia, unspecified; F12.10 Cannabis abuse, uncomplicated; Z88.8 Allergy status to other drugs, medicaments and biological substances; Z79.891 Long term (current) use of opiate analgesic; Z76.0 Encounter for issue of repeat prescription
CPT/HCPCS: 99284; 99406

== ENCOUNTER 2019-07-22 10:49 | Emergency (ER) | payer OTHER ==
[~2019-07-22] VITALS: Ht 193 cm; Wt 94.8 kg
[2019-07-22 10:53] VITALS: BP 169/68
--- NOTE | 2019-07-22 10:56 | NUR ---
Pt ambulated to bed 8.
--- NOTE | 2019-07-22 10:58 | NUR ---
Note undone in EDM - 07/22/19 at 1109 by [email or web address] 54/M BIB FAMILY C/O NO SLEEP &X 2 DAYS, AUDITORY HALLUCINATIONS. DENIES SI/HI. SEEN HERE 2 DAYS AGO SAME S/S. med hx: chronic back pain. PATIENT STATES PAIN OF 5/10 AT THIS TIME; VSS; PATIENT POSITIONED FOR COMFORT; HOB ELEVATED; BEDRAILS UP X1; BED DOWN. ER MADE AWARE OF PT STATUS.
--- NOTE | 2019-07-22 10:58 | NUR ---
54/M BIB FAMILY C/O NO SLEEP & AUDITORY HALLUCINATIONS. DENIES SI/HI. SEEN HERE 2 DAYS AGO SAME S/S. PATIENT STATES back PAIN OF 5/10 AT THIS TIME. PATIENT POSITIONED FOR COMFORT; HOB ELEVATED; BEDRAILS UP X1; BED DOWN. ER MD MADE AWARE OF PT STATUS.
--- NOTE | 2019-07-22 11:07 | NUR ---
Patient being evaluated by DR TAN at bedside.
--- NOTE | 2019-07-22 11:24 | NUR ---
pt taken to ct
[2019-07-22] MEDS ORDERED: LORazepam 2 MG/ML VIAL IVP ONE (11:30)
[2019-07-22 11:35] LABS: BASOPHILS # (AUTO) 0.1 K/uL (0.00-0.22); BASOPHILS % (AUTO) 0.9 % (0.0-2.0); EOSINOPHILS % (AUTO) 0.2 % (0.0-4.0); HEMATOCRIT 43.9 % (36-52); HEMOGLOBIN 15.2 g/dL (12.0-18.0); LYMPHOCYTES # (AUTO) 1.2 K/uL (2.0-11.5); LYMPHOCYTES % (AUTO) 12.4 % (20.5-51.1); MEAN CORPUSCULAR HEMOGLOBIN 29 pg (27-31); MEAN CORPUSCULAR HGB CONC 35 g/dL (33-37); MEAN CORPUSCULAR VOLUME 83.9 fL (80-94); MONOCYTES % (AUTO) 10.4 % (1.7-9.3); NEUTROPHILS # (AUTO) 7.2 K/uL (1.8-7.7); NEUTROPHILS % (AUTO) 76.1 % (42.2-75.2); PLATELET COUNT (AUTO) 227 K/uL (140-450); RED BLOOD CELL COUNT(AUTO) 5.23 MIL/uL (4.20-6.10); RED CELL DISTRIBUTION WIDTH 14.3 % (11.6-13.7); WHITE BLOOD COUNT (AUTO) 9.5 K/uL (4.8-10.8)
--- NOTE | 2019-07-22 11:47 | NUR ---
Covering for primary RN. Pt medication per MD order. Pt placed on NIBP monitoring and pulse oximetry. VSS. Daughter at bedside. Pt placed in position of comfort. Lights dimmed in room. All needs addressed. Pt advised he was waiting for lab results and CT results. Call light left within reach. Will continue to monitor.
[2019-07-22 12:00] LABS: ANION GAP 18.4 (8-16); CARBON DIOXIDE 26.3 mmol/L (21-32); POTASSIUM 2.7 mmol/L (3.5-5.1)
[2019-07-22 12:01] LABS: CREATININE 1.9 mg/dL (0.7-1.3)
[2019-07-22 12:02] LABS: ALBUMIN 4.7 g/dL (3.4-5.0)
[2019-07-22] MEDS ORDERED: POTASSIUM CHLORIDE 10 MEQ TABER PO ONE (12:05)
[2019-07-22 12:40] VITALS: BP 121/83
== END 2019-07-22 12:40 | disposition home or self-care (01) ==
LOC: MED 10:49
DX: G47.00 Insomnia, unspecified (principal); R41.0 Disorientation, unspecified; R44.0 Auditory hallucinations; F41.9 Anxiety disorder, unspecified; I10 Essential (primary) hypertension; F17.210 Nicotine dependence, cigarettes, uncomplicated; Z79.899 Other long term (current) drug therapy; Z79.891 Long term (current) use of opiate analgesic; Z88.8 Allergy status to other drugs, medicaments and biological substances
CPT/HCPCS: 36415; 70450; 80053; 85025; 96374; 99284; J2060